=== PATIENT | female | born 1965 | race Caucasian/White ===

== ENCOUNTER 2023-11-18 06:46 | Emergency (ER) | payer OTHER, BC ==
[2023-11-18 06:55] VITALS: RESP 24; TEMP 99.8; BMI 18.6
[2023-11-18 08:14] LABS: BASO % 0.5 % (0-2.0); HEMATOCRIT 32.9 % (32.4-45.2); HEMOGLOBIN 10.7 GM/dL (10.7-15.3); LYMPH % 4.6 % (8-40); MCH 29.5 pg (25.7-33.7); MCHC 32.6 g/dl (32.0-36.0); MEAN CELL VOLUME 90.6 fl (80-96); MEAN PLT VOLUME 8.2 fl (7.5-11.1); MONO % 8.2 % (3.8-10.2); NEUT % 82.7 % (42.8-82.8); PLATELET COUNT 186 10^3/uL (134-434); RBC 3.63 M/mm3 (3.60-5.2); RDW 19.5 % (11.6-15.6); WHITE BLOOD COUNT 6.3 K/mm3 (4.0-10.0)
[2023-11-18 08:16] LABS: VENOUS BASE EXCESS 2.9 mmol/L (-2-2); VENOUS PCO2 53.3 mmHg (38-52); VENOUS PH 7.358 (7.310-7.410)
[2023-11-18 08:25] LABS: ACTIVATED PTT 29.4 SECONDS (25.2-36.5)
[2023-11-18 08:33] LABS: INR 1.16 (0.83-1.09); PROTHROMBIN TIME (PATIENT) 13.4 SEC (9.7-13.0)
[2023-11-18 08:35] LABS: POTASSIUM 3.7 mmol/L (3.5-5.1)
[2023-11-18 08:37] LABS: BLOOD UREA NITROGEN 7.9 mg/dL (7-18); CALCIUM 8.8 mg/dL (8.5-10.1)
[2023-11-18 08:39] LABS: CREATININE 0.5 mg/dL (0.55-1.3)
[2023-11-18 08:41] LABS: BILIRUBIN,TOTAL 0.5 mg/dL (0.2-1); TOT PROT 6.4 g/dl (6.4-8.2)
[2023-11-18 08:43] LABS: N-TERMINAL BNP 228.7 pg/ml (5-125)
[2023-11-18] MEDS ORDERED: MIDAZOLAM HCL 2 MG/2 ML SINGLE DOSE VIAL ONE (09:02)
[2023-11-18] MEDS: MIDAZOLAM HCL 2 MG/2 ML SINGLE DOSE VIAL IVPUSH ONE (09:15)
[2023-11-18] MEDS: VANCOMYCIN 750 MG in DEXTROSE 5%-WATER - 150 ML IVPB ONE (10:36)
[2023-11-18] MEDS ORDERED: CEFEPIME 2 GM/100 ML BAG IVPB ONE (10:38)
[2023-11-18] MEDS: CEFEPIME HCL 2 GM VIAL (RESTRICTED TO ID) IVPB ONE (10:42)
[2023-11-18] MEDS ORDERED: VANCOMYCIN 1 GRAM (PRE-DOCKED) 1,000 MG/250 ML BAG IVPB ONE (11:42)
[2023-11-18] MEDS: VANCOMYCIN/WATER FOR INJ (PEG) 750 MG/150 ML BAG IVPB ONE (11:49)
[2023-11-18] MEDS ORDERED: ACETAMINOPHEN INJECTION 100 ML IVPB ONE (11:51)
[2023-11-18] MEDS: ACETAMINOPHEN 1000 MG/100 ML BAG IVPB ONE (11:52)
[2023-11-18 12:29] VITALS: BP 133/66; PULSE 90
== END 2023-11-18 12:41 | disposition short-term general hospital (02) ==
LOC: JER 06:46
PROC: 3E03329 Introduction of Other Anti-infective into Peripheral Vein, Percutaneous Approach (ICD-10-PCS; principal; 2023-11-18)
PROC: 3E030NZ Introduction of Analgesics, Hypnotics, Sedatives into Peripheral Vein, Open Approach (ICD-10-PCS; 2023-11-18)
PROC: 3E030GC Introduction of Other Therapeutic Substance into Peripheral Vein, Open Approach (ICD-10-PCS; 2023-11-18)
PROC: 3E030GC Introduction of Other Therapeutic Substance into Peripheral Vein, Open Approach (ICD-10-PCS; 2023-11-18)
DX: J18.9 Pneumonia, unspecified organism (principal); C15.9 Malignant neoplasm of esophagus, unspecified; R06.02 Shortness of breath; R50.9 Fever, unspecified; R07.9 Chest pain, unspecified; Z20.822 Contact with and (suspected) exposure to COVID-19
CPT/HCPCS: 0241U-QW; 36415; 71046-TC-FY; 71275-TC; 80053; 82803; 83880; 84484; 85025; 85610; 85730; 87040; 93005; 93010; 99285-25; J0131; Q9967